=== PATIENT | male | born 1990 | race Caucasian/White ===

== ENCOUNTER 2018-07-17 22:25 | Emergency (ER) | payer OTHER, SELFPAY ==
[2018-07-17 22:32] VITALS: BP 137/70; PULSE 76; RESP 20; TEMP 36.8; O2SAT 96
--- NOTE | 2018-07-17 23:08 | W.ED.GENAD ---
Discharge Plan Disposition Patient Disposition: HOME Condition: Good Discharge Details Chief Complaint: Laceration Clinical Impression: Laceration of finger of right hand Primary Care Provider: Tin Howard ED Provider: Jhon Brennan Home Meds and New Rx's Prescriptions: No Action ibuprofen 600 MG tablet 600 mg PO Q6H PRN (Reason: Pain) Qty: 20 RF: 0 Discharge Instructions Instructions: Finger Laceration (ED) Additional Instructions: Do not use antibiotic ointment on the glue. Be careful washing your hands and do not scrub hard over the glue. The wounds were fairly superficial and should heal quickly. Watch for any signs of infection which will include increased pain, redness, swelling. Return to ED if that occurs. Referrals: [facility] [Provider Group] Discharge Data Discharge Date/Time-TO BE ENTERED AT DEPARTURE: 07/17/18 23:34 Medical Decision Making Patient with very superficial lacerations to the pads of his right ring and little finger. They are through the dermis with exposure of subcutaneous tissue but no deeper. No evidence of neurovascular or tendon injury. Wounds were irrigated. Because of the superficial nature of the wounds skin glue was used to close them. Patient's tetanus was updated. Patient was discharged home. Return if any evidence of infection or problems. HPI General Mode of arrival: ambulatory. Date/Time Provider Initiated Documentation: 07/17/18 22:40. Limitations to Documentation: no limitations. Information obtained by: patient. HPI Narrative: Patient is a [id number]-lvqdairt male who presents from work with lacerations to the right ring and little finger pads. 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 He sliced the pads of those fingers in the process of doing so. He denies any other injury. He does not know his tetanus status. He presents now for evaluation. Related Data Home Medications Medication Instructions Recorded Confirmed ibuprofen 600 mg PO Q6H PRN #20 tab 04/16/17 07/17/18 Previous Rx's Medication Instructions Recorded ibuprofen 600 mg PO Q6H PRN #20 tab 04/16/17 Allergies Allergy/AdvReac Type Severity Reaction Status Date / Time No Known Allergies Allergy Unverified 07/17/18 22:34 General Stated Complaint: Laceration LEORA: 3 Review of Systems Musculoskeletal Denies deformity, Denies limited range of motion, Denies numbness and Denies tingling Integumentary/Breasts Reports wounds Neurologic Denies focal weakness, Denies numbness, Denies tingling and Denies paresthesias [facility] Surgical History LEFT SHOULDER REPAIR Family History Mother No problems noted. Father Hyperlipidemia Sister Hyperlipidemia Grandfather No problems noted. Grandfather Diabetes Heart disease Hyperlipidemia Grandmother Personal history of malignant neoplasm Grandmother Personal history of malignant neoplasm Social History Smoking/Tobacco Use Status: Never Exam Const General: cooperative and comfortable Orientation: alert and oriented x3 Skin Trauma: laceration (Superficial lacerations through the right ring and little finger pads.) Neuro General: alert, oriented x3 and no focal motor deficits Sensory Exam: no sensory deficits noted Extrem Right upper extremity: hand Details: normal capillary refill, neuromotor exam normal, neurosensory exam normal, tendon exam normal, normal ROM of fingers and laceration Course Vital Signs Temperature 98.2 F 07/17/18 22:32 Pulse 76 07/17/18 22:32 Respiratory Rate 20 07/17/18 22:32 Blood Pressure 137/70 07/17/18 22:32 Pulse Oximetry 96 07/17/18 22:32 Temperature 98.2 F 07/17/18 22:32 Temperature Source Temporal Artery Scan 07/17/18 22:32 Pulse 76 07/17/18 22:32 Respiratory Rate 20 07/17/18 22:32 Respiratory Effort Non-Labored 07/17/18 22:32 Blood Pressure 137/70 07/17/18 22:32 Blood Pressure Position Standing 07/17/18 22:32 Pulse Oximetry 96 07/17/18 22:32 Oxygen Delivery Method Room Air 07/17/18 22:32 Oxygen Flow Rate 0 07/17/18 22:32 Pain Level 0 07/17/18 22:36 Procedures Laceration Laceration 1: Site: upper extremity and hand (ring finger) Side (If applicable): right Size (cm): 1 Description: linear and clean Depth: simple, single layer Pre-repair: irrigated extensively Skin layer closed with: other (skin glue) Size (cm): other Laceration 2: Site: hand (little finger) Side (If applicable): right Size (cm): 0.5 Description: linear and clean Depth: simple, single layer Pre-repair: irrigated extensively Skin layer closed with: other (skin glue)
--- NOTE | 2018-07-17 23:15 | ED.GENADUL_ITS ---
Discharge Plan Disposition Patient Disposition: HOME Condition: Good Discharge Details Chief Complaint: Laceration Clinical Impression: Laceration of finger of right hand Primary Care Provider: Tni Howard ED Provider: Jhon Brennan Home Meds and New Rx's Prescriptions: No Action ibuprofen 600 MG tablet 600 mg PO Q6H PRN (Reason: Pain) Qty: 20 RF: 0 Discharge Instructions Instructions: Finger Laceration (ED) Additional Instructions: Do not use antibiotic ointment on the glue. Be careful washing your hands and do not scrub hard over the glue. The wounds were fairly superficial and should heal quickly. Watch for any signs of infection which will include increased pain, redness, swelling. Return to ED if that occurs. Referrals: [facility] [Provider Group] Discharge Data Discharge Date/Time-TO BE ENTERED AT DEPARTURE: 07/17/18 23:34 Medical Decision Making Patient with very superficial lacerations to the pads of his right ring and little finger. They are through the dermis with exposure of subcutaneous tissue but no deeper. No evidence of neurovascular or tendon injury. Wounds were irrigated. Because of the superficial nature of the wounds skin glue was used to close them. Patient's tetanus was updated. Patient was discharged home. Return if any evidence of infection or problems. HPI General Mode of arrival: ambulatory . Date/Time Provider Initiated Documentation: 07/17/18 22:40 . Limitations to Documentation: no limitations . Information obtained by: patient . HPI Narrative: Patient is a [id number]-plisfgxg male who presents from work with lacerations to the right ring and little finger pads. 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 He sliced the pads of those fingers in the process of doing so. He denies any other injury. He does not know his tetanus status. He presents now for evaluation. Related Data Home Medications Medication Instructions Recorded Confirmed ibuprofen 600 mg PO Q6H PRN #20 tab 04/16/17 07/17/18 Previous Rx's Medication Instructions Recorded ibuprofen 600 mg PO Q6H PRN #20 tab 04/16/17 Allergies Allergy/AdvReac Type Severity Reaction Status Date / Time No Known Allergies Allergy Unverified 07/17/18 22:34 General Stated Complaint: Laceration LEORA: 3 Review of Systems Musculoskeletal Denies deformity, Denies limited range of motion, Denies numbness and Denies tingling Integumentary/Breasts Reports wounds Neurologic Denies focal weakness, Denies numbness, Denies tingling and Denies paresthesias [facility] Surgical History LEFT SHOULDER REPAIR Family History Mother No problems noted. Father Hyperlipidemia Sister Hyperlipidemia Grandfather No problems noted. Grandfather Diabetes Heart disease Hyperlipidemia Grandmother Personal history of malignant neoplasm Grandmother Personal history of malignant neoplasm Social History Smoking/Tobacco Use Status: Never Exam Const General: cooperative and comfortable Orientation: alert and oriented x3 Skin Trauma: laceration (Superficial lacerations through the right ring and little finger pads.) Neuro General: alert, oriented x3 and no focal motor deficits Sensory Exam: no sensory deficits noted Extrem Right upper extremity: hand Details: normal capillary refill, neuromotor exam normal, neurosensory exam normal, tendon exam normal, normal ROM of fingers and laceration Course Vital Signs Temperature 98.2 F 07/17/18 22:32 Pulse 76 07/17/18 22:32 Respiratory Rate 20 07/17/18 22:32 Blood Pressure 137/70 07/17/18 22:32 Pulse Oximetry 96 07/17/18 22:32 Temperature 98.2 F 07/17/18 22:32 Temperature Source Temporal Artery Scan 07/17/18 22:32 Pulse 76 07/17/18 22:32 Respiratory Rate 20 07/17/18 22:32 Respiratory Effort Non-Labored 07/17/18 22:32 Blood Pressure 137/70 07/17/18 22:32 Blood Pressure Position Standing 07/17/18 22:32 Pulse Oximetry 96 07/17/18 22:32 Oxygen Delivery Method Room Air 07/17/18 22:32 Oxygen Flow Rate 0 07/17/18 22:32 Pain Level 0 07/17/18 22:36 Procedures Laceration Laceration 1: Site: upper extremity and hand (ring finger) Side (If applicable): right Size (cm): 1 Description: linear and clean Depth: simple, single layer Pre-repair: irrigated extensively Skin layer closed with: other (skin glue) Size (cm): other Laceration 2: Site: hand (little finger) Side (If applicable): right Size (cm): 0.5 Description: linear and clean Depth: simple, single layer Pre-repair: irrigated extensively Skin layer closed with: other (skin glue)
[2018-07-18] MEDS: Tetanus & Diphtheria Tox,ADULT 0.5 ML VIAL IM (00:13)
== END 2018-07-17 23:34 | disposition home or self-care (01) ==
PROVIDERS: Emergency Provider Emergency Medicine; PCP Family Medicine
DX: S61.214A Laceration without foreign body of right ring finger without damage to nail, initial encounter (principal); S61.216A Laceration without foreign body of right little finger without damage to nail, initial encounter; W31.1XXA Contact with metalworking machines, initial encounter
CPT/HCPCS: 12001

== ENCOUNTER 2018-07-22 11:30 | Emergency (ER) | payer OTHER, SELFPAY ==
[2018-07-22 12:13] VITALS: BP 114/73; PULSE 56; RESP 16; TEMP 36.9; O2SAT 97
--- NOTE | 2018-07-22 14:01 | W.ED.GENAD ---
Discharge Plan Disposition Patient Disposition: HOME Condition: Fair Discharge Details Chief Complaint: Cellulitis Clinical Impression: Finger laceration Primary Care Provider: Tin Howard ED Provider: Gracie Ball Home Meds and New Rx's Prescriptions: Continued ibuprofen 600 MG tablet 600 mg PO Q6H PRN (Reason: Pain) Qty: 20 RF: 0 Discharge Instructions Instructions: Finger Laceration (ED) Additional Instructions: Keep wound clean and dry. Allow to air to allow skin to dry further. When you are active during the day covered with a Band-Aid. Monitor for signs of infection including redness, warmth, drainage, increased pain, fevers or chills. If this arise please seek care urgently once Please follow-up with primary care in 1 week for reevaluation of your wound Referrals: Tin Howard. [Primary Care Provider] - Discharge Data Discharge Date/Time-TO BE ENTERED AT DEPARTURE: 07/22/18 14:11 Medical Decision Making Patient 27-year-old male presents today for reevaluation of a laceration he sustained to the right middle finger. Patient was seen here 5 days ago at which time superficial wound was closed with adhesive. He denies any fevers or chills. States that the finger is swollen does not endorse any large amount of discomfort. On exam, continue to remove the adhesive for better view of the wound. The skin appears quite macerated and blanched but no surrounding erythema, warmth or discharge. I advised that this wound area may or may not be viable long-term. Discussed possible courses of healing. Have asked nursing staff to cleanse the wound and reapply dressing. I will not reapply any adhesive for closure at this time. We discussed wound care. We discussed signs symptoms of infection when to seek care urgently once again. Tylenol and/or ibuprofen as needed for discomfort. Follow-up with primary care in 1 week for reevaluation HPI General Mode of arrival: ambulatory. Date/Time Provider Initiated Documentation: 07/22/18 13:46. Limitations to Documentation: no limitations. Information obtained by: patient. History of Present Illness 27 year old M presents to the emergency department with the chief complaint of right middle finger laceration, described as mild, and is localized to the right and upper extremity. Patient reports no radiation. Patient started experiencing this day(s) and it has been constant. No relieving factors improve symptom(s), No exacerbating factors reported . Patient notes denies cough, fever/chills, nausea/vomiting and rash. Patient did receive the following treatments prior to arrival, none Related Data Home Medications Medication Instructions Recorded Confirmed ibuprofen 600 mg PO Q6H PRN #20 tab 04/16/17 07/22/18 Previous Rx's Medication Instructions Recorded ibuprofen 600 mg PO Q6H PRN #20 tab 04/16/17 Allergies Allergy/AdvReac Type Severity Reaction Status Date / Time No Known Allergies Allergy Unverified 07/22/18 12:15 General Stated Complaint: Cellulitis LEORA: 4 Review of Systems Constitutional Reports as per HPI, Denies chills and Denies fever(s) Musculoskeletal Reports as per HPI Integumentary/Breasts Reports as per HPI Neurologic Reports as per HPI, Denies sensory deficit and Denies paresthesias [facility] Surgical History LEFT SHOULDER REPAIR Family History Mother No problems noted. Father Hyperlipidemia Sister Hyperlipidemia Grandfather No problems noted. Grandfather Diabetes Heart disease Hyperlipidemia Grandmother Personal history of malignant neoplasm Grandmother Personal history of malignant neoplasm Social History Smoking/Tobacco Use Status: Never Exam Const General: cooperative, healthy appearing, comfortable, no acute distress and well developed Nutritional Appearance: average body habitus and well nourished Orientation: alert and awake Resp Effort & Inspection: normal respiratory effort, able to speak in complete sentences and no respiratory distress Cardio Rate: regular rate Rhythm: regular rhythm Skin General skin exam: no ecchymosis, no erythema and no fluctuance Trauma: laceration (patient has superficial laceration to pad of right middle finger) and other (skin around is blanched, appear macerated. ) Neuro General: alert and awake Cognition: normal cognition Speech: speech normal Gait: normal gait Sensory Exam: no sensory deficits noted Extrem Right upper extremity: full ROM, normal capillary refill and no joint enlargement; abnormal to inspection (laceration and skin changes as above) Psych Appearance: grossly normal and well kempt Mental Status: mental status grossly normal Speech and Movement: speech and movement normal Course Vital Signs Temperature 36.9 C 07/22/18 12:13 Pulse 56 L 07/22/18 12:13 Respiratory Rate 16 07/22/18 12:13 Blood Pressure 114/73 07/22/18 12:13 Pulse Oximetry 97 07/22/18 12:13 Temperature 36.9 C 07/22/18 12:13 Temperature Source Skin 07/22/18 12:13 Pulse 56 L 07/22/18 12:13 Respiratory Rate 16 07/22/18 12:13 Respiratory Effort 07/22/18 12:13 Blood Pressure 114/73 07/22/18 12:13 Blood Pressure Position Sitting 07/22/18 12:13 Pulse Oximetry 97 07/22/18 12:13 Oxygen Delivery Method Room Air 07/22/18 12:13 Oxygen Flow Rate 0 07/22/18 12:13 Pain Level 0 07/22/18 12:13
--- NOTE | 2018-07-22 14:04 | ED.GENADUL_ITS ---
Discharge Plan Disposition Patient Disposition: HOME Condition: Fair Discharge Details Chief Complaint: Cellulitis Clinical Impression: Finger laceration Primary Care Provider: Tin Howard ED Provider: Gracie Ball Home Meds and New Rx's Prescriptions: Continued ibuprofen 600 MG tablet 600 mg PO Q6H PRN (Reason: Pain) Qty: 20 RF: 0 Discharge Instructions Instructions: Finger Laceration (ED) Additional Instructions: Keep wound clean and dry. Allow to air to allow skin to dry further. When you are active during the day covered with a Band-Aid. Monitor for signs of infection including redness, warmth, drainage, increased pain, fevers or chills. If this arise please seek care urgently once Please follow-up with primary care in 1 week for reevaluation of your wound Referrals: Tin Howard. [Primary Care Provider] - Discharge Data Discharge Date/Time-TO BE ENTERED AT DEPARTURE: 07/22/18 14:11 Medical Decision Making Patient 27-year-old male presents today for reevaluation of a laceration he sustained to the right middle finger. Patient was seen here 5 days ago at which time superficial wound was closed with adhesive. He denies any fevers or chills. States that the finger is swollen does not endorse any large amount of discomfort. On exam, continue to remove the adhesive for better view of the wound. The skin appears quite macerated and blanched but no surrounding erythema, warmth or discharge. I advised that this wound area may or may not be viable long-term. Discussed possible courses of healing. Have asked nursing staff to cleanse the wound and reapply dressing. I will not reapply any adhesive for closure at this time. We discussed wound care. We discussed signs symptoms of infection when to seek care urgently once again. Tylenol and/or ibuprofen as needed for discomfort. Follow-up with primary care in 1 week for reevaluation HPI General Mode of arrival: ambulatory . Date/Time Provider Initiated Documentation: 07/22/18 13:46 . Limitations to Documentation: no limitations . Information obtained by: patient . History of Present Illness 27 year old M presents to the emergency department with the chief complaint of right middle finger laceration, described as mild, and is localized to the right and upper extremity. Patient reports no radiation. Patient started experiencing this day(s) and it has been constant. No relieving factors improve symptom(s), No exacerbating factors reported . Patient notes denies cough, fever/chills, nausea/vomiting and rash. Patient did receive the following treatments prior to arrival, none Related Data Home Medications Medication Instructions Recorded Confirmed ibuprofen 600 mg PO Q6H PRN #20 tab 04/16/17 07/22/18 Previous Rx's Medication Instructions Recorded ibuprofen 600 mg PO Q6H PRN #20 tab 04/16/17 Allergies Allergy/AdvReac Type Severity Reaction Status Date / Time No Known Allergies Allergy Unverified 07/22/18 12:15 General Stated Complaint: Cellulitis LEORA: 4 Review of Systems Constitutional Reports as per HPI, Denies chills and Denies fever(s) Musculoskeletal Reports as per HPI Integumentary/Breasts Reports as per HPI Neurologic Reports as per HPI, Denies sensory deficit and Denies paresthesias [facility] Surgical History LEFT SHOULDER REPAIR Family History Mother No problems noted. Father Hyperlipidemia Sister Hyperlipidemia Grandfather No problems noted. Grandfather Diabetes Heart disease Hyperlipidemia Grandmother Personal history of malignant neoplasm Grandmother Personal history of malignant neoplasm Social History Smoking/Tobacco Use Status: Never Exam Const General: cooperative, healthy appearing, comfortable, no acute distress and well developed Nutritional Appearance: average body habitus and well nourished Orientation: alert and awake Resp Effort & Inspection: normal respiratory effort, able to speak in complete sentences and no respiratory distress Cardio Rate: regular rate Rhythm: regular rhythm Skin General skin exam: no ecchymosis, no erythema and no fluctuance Trauma: laceration (patient has superficial laceration to pad of right middle finger) and other (skin around is blanched, appear macerated. ) Neuro General: alert and awake Cognition: normal cognition Speech: speech normal Gait: normal gait Sensory Exam: no sensory deficits noted Extrem Right upper extremity: full ROM, normal capillary refill and no joint enlargement; abnormal to inspection (laceration and skin changes as above) Psych Appearance: grossly normal and well kempt Mental Status: mental status grossly normal Speech and Movement: speech and movement normal Course Vital Signs Temperature 36.9 C 07/22/18 12:13 Pulse 56 L 07/22/18 12:13 Respiratory Rate 16 07/22/18 12:13 Blood Pressure 114/73 07/22/18 12:13 Pulse Oximetry 97 07/22/18 12:13 Temperature 36.9 C 07/22/18 12:13 Temperature Source Skin 07/22/18 12:13 Pulse 56 L 07/22/18 12:13 Respiratory Rate 16 07/22/18 12:13 Respiratory Effort 07/22/18 12:13 Blood Pressure 114/73 07/22/18 12:13 Blood Pressure Position Sitting 07/22/18 12:13 Pulse Oximetry 97 07/22/18 12:13 Oxygen Delivery Method Room Air 07/22/18 12:13 Oxygen Flow Rate 0 07/22/18 12:13 Pain Level 0 07/22/18 12:13
== END 2018-07-22 14:11 | disposition home or self-care (01) ==
PROVIDERS: Emergency Provider Physician Assistant; PCP Family Medicine
DX: S61.214D Laceration without foreign body of right ring finger without damage to nail, subsequent encounter (principal); S61.216D Laceration without foreign body of right little finger without damage to nail, subsequent encounter; W31.1XXD Contact with metalworking machines, subsequent encounter

== ENCOUNTER 2018-12-24 00:20 | Outpatient (CLI) | payer OTHER, SELFPAY ==
--- NOTE | 2018-12-24 16:15 | DI.RAD_ITS ---
SYMPTOM/DIAGNOSIS: CHRONIC LOW BACK PAIN, M54.5, G89.29, POSITIVE STORK SIGN ON RT, ? SPONDYLOLYSIS LUMBOSACRAL SPINE: The vertebral bodies are intact. The disc spaces well maintained. The pedicle, spinous and transverse processes are intact. Mild facet joint degenerative changes are noted at L 4-5 and L 5-S 1. There is no evidence of spondylosis or spondylolisthesis. The sacrum and sacroiliac joints are unremarkable. SUMMARY: Normal lumbosacral spine.
== END 2018-12-24 00:40 ==
PROVIDERS: PCP Family Medicine; Visit Provider Family Medicine
DX: M54.5 Low back pain (principal); G89.29 Other chronic pain; M47.817 Spondylosis without myelopathy or radiculopathy, lumbosacral region; R29.898 Other symptoms and signs involving the musculoskeletal system
CPT/HCPCS: 72110

== ENCOUNTER 2020-01-20 12:57 | Outpatient (CLI) | payer OTHER, SELFPAY ==
[2020-01-23 06:56] LABS: SARS-CoV-2 RNA Undetected (Undetected); SARS-CoV-2 Specimen Source Nasopharynx
== END 2020-01-20 13:17 ==
PROVIDERS: PCP Family Medicine; Visit Provider Family Medicine
DX: Z11.59 Encounter for screening for other viral diseases (principal)
CPT/HCPCS: U0003

== ENCOUNTER 2020-05-19 22:37 | Outpatient (REF) | payer OTHER, SELFPAY ==
[2020-05-19 23:29] LABS: Calculated LDL 88 mg/dL (<100); Cholesterol 168 mg/dL (<200); HDL Cholesterol 66 mg/dL (40-60); Triglyceride 73 mg/dL (<150)
== END 2020-05-19 22:57 ==
LOC: LBN 22:37
PROVIDERS: PCP Family Medicine; Visit Provider Family Medicine
DX: E78.5 Hyperlipidemia, unspecified (principal)
CPT/HCPCS: 80061

== ENCOUNTER 2020-08-03 08:17 | Outpatient (CLI) | payer OTHER, SELFPAY ==
[2020-08-04 19:30] LABS: COVID-19 RT-PCR UVMMC Result Negative (Negative)
== END 2020-08-03 08:37 ==
PROVIDERS: Nurse Practitioner Gerontology; PCP Family Medicine; Visit Provider Urology
DX: Z01.818 Encounter for other preprocedural examination (principal); Z11.52 Encounter for screening for COVID-19
CPT/HCPCS: U0003

== ENCOUNTER 2020-08-03 10:48 | Day surgery (SDC) | payer OTHER, SELFPAY ==
--- NOTE | 2020-08-03 10:27 | HPE_ITS ---
Date of service: 08/03/20 Time of Service: 10:27 Assessment and Plan Assessment and plan (1) Scrotal hematoma: Status: Acute Assessment and plan: For evacuation and primary closure History of Present Illness History of Present Illness Chief Complaint: Right scrotal hematoma Narrative: This is a 29-year-old gentleman who underwent vasectomy about 1 month ago. Immediately after the procedure, he did have a right-sided hematoma which started decreasing in size. He then sustained a fall about 48 hours and had direct trauma to the right hemiscrotum. His hemiscrotum increased in size and was evaluated at our office yesterday. He had an ultrasound which demonstrated a normal testis with good blood flow but there was a large hematoma surrounding the testis. We would expect this hematoma to absorb if given enough time, but because of his discomfort level, he presents for evacuation of the hematoma Review of Systems Narrative: No fevers or chills No vision change or dysphasia No diabetes or thyroid No shortness of breath, cough or hemoptysis No chest pain or palpitations No nausea, vomiting, hepatitis, ulcers, jaundice, diarrhea or constipation No seizures, strokes or peripheral neuropathy No bleeding disorders or anemia No gout [facility] Medical History (Updated 08/03/20 @ 10:31 by Kg Amezquita MD) Scrotal hematoma Surgical History LEFT SHOULDER REPAIR FX LEFT CLAVICLE Family History (Updated 05/20/20 @ 12:13 by Alexander Jordan) Mother No problems noted. Father Hyperlipidemia Sister Hyperlipidemia Maternal Grandfather No problems noted. Paternal Grandfather Diabetes Heart disease Hyperlipidemia Maternal Grandmother Breast cancer Skin cancer Paternal Grandmother Ovarian cancer Social History (Updated 05/20/20 @ 12:11 by Alexander Jordan) Smoking/Tobacco Use Status: Never Smoking risk assessment performed?: Yes Alcohol Intake: never Drug use: Daily Substance use type: marijuana Household members: significant other and children Housing: house Communication Needs: None Pets and animals: Yes Pets and animals: dog(s) Sexually active: Yes Do you think of yourself as: straight/heterosexual Current gender identity: male What is your relationship status?: How often do you talk on the phone with friends or family?: once per week How often do you get together with friends or relatives?: once per week How often do you attend taoist or gnosticism services?: decline to answer Do you belong to any clubs or organized social groups?: decline to answer Panel score (0-1 are the most socially isolated patients): 1 What type of physical activity do you participate in: other Details: work Duration: > 90 minutes/day Frequency: daily Ammy/Judaism: None Special ammy needs: No Seatbelt use: always Helmet use: Yes Helmet use: sometimes Drive intox or ride w/intox non emergency services ambulance driver: No Do you feel safe at home: Yes Do you feel safe in your relationship?: Yes Meds Home Medications and Allergies Home Medications Medication Instructions Recorded Confirmed Type ibuprofen 600 mg PO Q6H PRN #20 tab 04/16/17 08/02/20 Rx multivitamin 1 cap PO DAILY 12/10/18 08/02/20 History diazepam 10 mg tablet 10 mg PO ONCE #1 tab 07/08/20 08/02/20 Rx tramadol 50 mg tablet 50 - 100 mg PO Q6H PRN #20 tab 07/09/20 08/02/20 Rx Allergies Allergy/AdvReac Type Severity Reaction Status Date / Time No Known Allergies Allergy Verified 08/02/20 15:03 Exam Const General: cooperative and no acute distress Neck Neck: supple Resp Effort & Inspection: normal respiratory effort Auscultation: clear to auscultation bilaterally Cardio Rate: regular rate Rhythm: regular rhythm Other: Right hemiscrotum enlarged and firm with no fluctuance or increased warmth. Tenderness and increased adenopathy in the right groin Neuro General: patient alert and patient awake COVID-19 Screening Have you, or household traveled for leisure in last 14 days?: No Had IN PERSON contact w/suspected or confirmed C-19 person: No
[2020-08-03 11:24] VITALS: BP 120/71; PULSE 76; RESP 16; TEMP 36.7; O2SAT 98
[2020-08-03] MEDS: Lactated Ringers 1,000 ML 80 ML IV (11:45)
[2020-08-03] MEDS: ceFAZolin 1 GM/50 ML BAG IVPB (11:48)
[2020-08-03] MEDS: Bupivacaine 0.5% Pres-Free 30 ML VIAL (12:10)
--- NOTE | 2020-08-03 12:15 | W.PM.DSUDISC ---
Discharge Plan Disposition Patient Disposition: HOME Condition: Stable Discharge Details Reason For Visit: scrotal hematoma Attending Provider: Kg Amezquita Primary Care Provider: Tin Howard Home Meds and New Rx's Prescriptions: No Action multivitamin capsule 1 cap PO DAILY RF: 0 diazepam [Valium] 10 mg tablet 10 mg PO ONCE Qty: 1 RF: 0 tramadol 50 mg tablet 50 - 100 mg PO Q6H PRN (Reason: pain) Qty: 20 RF: 0 ibuprofen 600 MG tablet 600 mg PO Q6H PRN (Reason: Pain) Qty: 20 RF: 0 Discharge Instructions Additional Instructions: scrotal support ice pack to scrotum no lifting over 10 pounds for 5 days Followup appt @ 1 week for wound check Activity:: no lifting over 110 pounds for 5 days Remove Dressings/Wound Care:: 24 hours Shower/Bathe:: 24 hours Diet:: As Tolerated Discharge Orders Discharge Orders: Discharge Order (Routine); Ordered 08/03/20 Ordered By: Kg Amezquita DS: Diagnosis Discharge Diagnosis (1) Scrotal hematoma: Status: Acute
--- NOTE | 2020-08-03 12:20 | W.PM.OP ---
Date of service: 08/03/20 Time of Service: 12:20 Operative Note Operative Note DATE OF PROCEDURE: 08/03/20 PRE-OP DIAGNOSIS: Scrotal hematoma POST-OP DIAGNOSIS: same PROCEDURE: Incisional drainage of scrotal hematoma SURGEON: Kg Amezquita ANESTHESIA: other (general anesthesia without intubation) ESTIMATED BLOOD LOSS: 5 PATHOLOGY: none sent COMPLICATIONS: None Patient was transported to: same day Patient's condition: stable Indications: This is a 29-year-old gentleman with undergone vasectomy about a month ago. He had a small hematoma after the procedure and the hematoma was in the process of reabsorbing. He then sustained a fall direct trauma to the right hemiscrotum and the hematoma enlarged. He did not tolerate conservative management, so he was brought to the operating room for drainage of the hematoma Findings: Liquefied hematoma Procedure Description: The patient was brought to the operating room 08/03/2020. He was given general anesthesia without intubation. He was also given preoperative IV antibiotics. A scrotal field block was performed using quarter percent Marcaine without epinephrine. A right-sided scrotal incision was made transversely. The incision was extended down through the dartos muscle and a liquefied hematoma was encountered. The hematoma was evacuated and the hematoma cavity was explored. A few small clots were identified. No active bleeding was seen. The hematoma cavity was irrigated using saline. There was no purulent material identified. The overlying skin was then reapproximated with simple interrupted 3-0 chromic sutures. A fluff dressing and scrotal support were then applied. He tolerated this procedure well.
--- NOTE | 2020-08-03 12:35 | W.PM.DSUDISC ---
Discharge Plan Disposition Patient Disposition: HOME Condition: Stable Discharge Details Reason For Visit: scrotal hematoma Attending Provider: Kg Amezquita Primary Care Provider: Tin Howard Home Meds and New Rx's Prescriptions: Continued multivitamin capsule 1 cap PO DAILY RF: 0 diazepam [Valium] 10 mg tablet 10 mg PO ONCE Qty: 1 RF: 0 ibuprofen 600 MG tablet 600 mg PO Q6H PRN (Reason: Pain) Qty: 20 RF: 0 tramadol 50 mg tablet 50 - 100 mg PO Q6H PRN (Reason: pain) Qty: 20 RF: 0 Discharge Instructions Additional Instructions: scrotal support ice pack to scrotum no lifting over 10 pounds for 5 days Followup appt @ 1 week for wound check Activity:: no lifting over 110 pounds for 5 days Remove Dressings/Wound Care:: 24 hours Shower/Bathe:: 24 hours Diet:: As Tolerated Discharge Orders Discharge Orders: Discharge Order (Routine); Ordered 08/03/20 Ordered By: Kg Amezquita DS: Diagnosis Discharge Diagnosis (1) Scrotal hematoma: Status: Acute
[2020-08-03 13:13] VITALS: BP 110/69; PULSE 80; RESP 18; TEMP 36.5; O2SAT 96
== END 2020-08-03 13:25 | disposition home or self-care (01) ==
PROVIDERS: PCP Family Medicine; Visit Provider Urology
PROC: (CPT 54700; principal; 2020-08-03 12:00)
DX: N99.840 Postprocedural hematoma of a genitourinary system organ or structure following a genitourinary system procedure (principal)
CPT/HCPCS: 54700; NC; J0690; J2001

== ENCOUNTER 2020-11-01 10:10 | Outpatient (CLI) | payer OTHER, SELFPAY ==
[2020-11-02 16:16] LABS: COVID-19 RT-PCR UVMMC Result Negative (Negative)
== END 2020-11-01 10:11 | disposition home or self-care (01) ==
PROVIDERS: PCP Family Medicine; Visit Provider Family Medicine
DX: Z20.822 Contact with and (suspected) exposure to COVID-19 (principal)
CPT/HCPCS: U0003

== ENCOUNTER 2021-06-06 12:00 | Outpatient (CLI) | payer OTHER, SELFPAY ==
[2021-06-08 15:46] LABS: COVID-19 RT-PCR UVMMC Result Negative (Negative)
== END 2021-06-06 12:01 | disposition home or self-care (01) ==
LOC: LBO 12:00
PROVIDERS: PCP Family Medicine; Visit Provider Nurse Practitioner Family
DX: Z20.822 Contact with and (suspected) exposure to COVID-19 (principal)
CPT/HCPCS: U0003

== ENCOUNTER 2021-07-25 08:57 | Outpatient (CLI) | payer OTHER, SELFPAY ==
[2021-07-26 23:08] LABS: COVID-19 RT-PCR UVMMC Result Negative (Negative)
== END 2021-07-25 08:58 | disposition home or self-care (01) ==
LOC: LBO 08:57 → LBN 18:35
PROVIDERS: PCP Family Medicine; Visit Provider Nurse Practitioner Family
DX: Z20.822 Contact with and (suspected) exposure to COVID-19 (principal)
CPT/HCPCS: U0003

== ENCOUNTER 2021-09-28 16:41 | Outpatient (REF) | payer OTHER, SELFPAY ==
[2021-09-30 12:40] LABS: COVID-19 RT-PCR UVMMC Result Negative (Negative)
== END 2021-09-28 16:42 | disposition home or self-care (01) ==
LOC: LBN 16:41
PROVIDERS: PCP Family Medicine; Visit Provider Family Medicine
DX: Z20.822 Contact with and (suspected) exposure to COVID-19 (principal)
CPT/HCPCS: U0003

== ENCOUNTER 2022-01-10 19:55 | Outpatient (REF) | payer OTHER, SELFPAY | END 2022-01-10 19:56 | disposition home or self-care (01) | LOC: LBN 19:55 | PROVIDERS: PCP Family Medicine; Visit Provider Physician Assistant | DX: J02.9 Acute pharyngitis, unspecified (principal) | CPT/HCPCS: 87070 ==

== ENCOUNTER 2023-05-17 11:30 | Outpatient (CLI) | payer BC, SELFPAY ==
[2023-05-17 13:09] LABS: Glucose 98 mg/dL (74-106)
[2023-05-17 13:16] LABS: Calculated LDL 106 mg/dL (<100); Cholesterol 189 mg/dL (<200); HDL Cholesterol 70 mg/dL (40-60); Triglyceride 67 mg/dL (<150)
== END 2023-05-17 11:31 | disposition home or self-care (01) ==
LOC: LOS 11:30
PROVIDERS: PCP Family Medicine; Referring Provider Family Medicine; Visit Provider Family Medicine
DX: E78.5 Hyperlipidemia, unspecified (principal); R73.9 Hyperglycemia, unspecified
CPT/HCPCS: 36415; 80061; 82947

== ENCOUNTER → 2023-09-24 12:19 | Outpatient (CLI) | payer BC, SELFPAY ==
--- NOTE | 2023-09-24 11:15 | DI.RAD_ITS ---
Exam(s) XR RIBS BI INCLUDE CHEST EXAM: XR RIBS BI INCLUDE CHEST CLINICAL HISTORY: fall, pain upper back, SOB, W19.XXXA TECHNIQUE: 2D digital imaging was performed. COMPARISON: CR CHEST 2 VIEWS PA,LAT from 04/16/2017 FINDINGS: MEDIASTINUM: Normal. HEART: Normal. PULMONARY VASCULATURE: Normal. LUNGS: Clear. PLEURAL SPACE: No pleural effusion or pneumothorax. BONE:Normal. BILATERAL RIBS: Normal. No fracture is visualized. OTHER FINDINGS:Prior left shoulder surgery. IMPRESSION: 1. No acute pulmonary findings. 2. Unremarkable bilateral ribs. DATA REPOSITORY: RADIATION DOSE DELIVERED:
--- NOTE | 2023-09-24 11:15 | DI.RAD_ITS ---
Exam(s) XR THORACIC SPINE COMPLETE EXAM: XR THORACIC SPINE COMPLETE CLINICAL HISTORY: fall onto upper back, SOB, W19.XXXA. TECHNIQUE: 2D digital imaging was performed. Three views. COMPARISON: No exams were available for comparison FINDINGS: BONES: There is no fracture or destructive lesion. The vertebral bodies and posterior elements are un remarkable. ALIGNMENT: Within normal limits. DISKS: Interverebral disc spaces are maintained. SOFT TISSUE: Visualized lungs are clear. IMPRESSION: Unremarkable radiographs of the thoracic spine. DATA REPOSITORY: RADIATION DOSE DELIVERED:
== END ==
PROVIDERS: PCP Family Medicine; Visit Provider Nurse Practitioner Family
DX: W19.XXXA Unspecified fall, initial encounter (principal); M54.59 Other low back pain
CPT/HCPCS: 71046; 71110; 72072

== ENCOUNTER 2024-05-22 09:38 | Outpatient (CLI) | payer BC, SELFPAY ==
[2024-05-22 21:38] LABS: HIV-1/2 Ag & Ab Screen Negative (Negative)
[2024-05-22 21:40] LABS: HBs Antibody, Quant 4.9 mIU/mL (See Note); Hep B Surface Ab Negative (See Note); Hepatitis B Core Antibody Negative (Negative); Hepatitis B Surface Antigen Negative (Negative)
[2024-05-22 21:58] LABS: Hepatitis C Ab w Rflx HCV PCR Negative (Negative)
== END 2024-05-22 09:39 | disposition home or self-care (01) ==
LOC: LOS 09:38
PROVIDERS: PCP Family Medicine; Referring Provider Family Medicine; Visit Provider Family Medicine
DX: Z11.59 Encounter for screening for other viral diseases (principal); Z00.00 Encounter for general adult medical examination without abnormal findings
CPT/HCPCS: 36415; 86704; 86706; 86803; 87340; 87389